=== PATIENT | male | born 1965 | race African-American/Black ===

== ENCOUNTER → 2020-04-10 10:33 | Outpatient (BNVA) | payer MEDICARE, MEDICAID, SELFPAY | PROVIDERS: PCP Internal Medicine; Referring Provider Internal Medicine; Visit Provider Family Medicine Adult Medicine | DX: M96.1 Postlaminectomy syndrome, not elsewhere classified (principal); M24.9 Joint derangement, unspecified; Z79.891 Long term (current) use of opiate analgesic; Z98.1 Arthrodesis status | CPT/HCPCS: 99214 ==

== ENCOUNTER → 2020-05-22 14:10 | Outpatient (BNVA) | payer MEDICARE, MEDICAID, SELFPAY | PROVIDERS: PCP Internal Medicine; Visit Provider Family Medicine Adult Medicine | DX: M24.9 Joint derangement, unspecified (principal); Z98.1 Arthrodesis status | CPT/HCPCS: 99212 ==

== ENCOUNTER → 2020-07-15 14:12 | Outpatient (BNVA) | payer MEDICARE, MEDICAID, SELFPAY | PROVIDERS: Visit Provider Nurse Practitioner Family | DX: M96.1 Postlaminectomy syndrome, not elsewhere classified (principal); M24.9 Joint derangement, unspecified; Z79.899 Other long term (current) drug therapy | CPT/HCPCS: 99212 ==

== ENCOUNTER → 2020-08-12 13:23 | Outpatient (BNVA) | payer MEDICARE, MEDICAID, SELFPAY | PROVIDERS: Visit Provider Family Medicine Adult Medicine | DX: M96.1 Postlaminectomy syndrome, not elsewhere classified (principal); M24.9 Joint derangement, unspecified | CPT/HCPCS: 99212 ==

== ENCOUNTER → 2020-09-29 14:46 | Outpatient (BNVA) | payer MEDICARE, MEDICAID, SELFPAY | PROVIDERS: Visit Provider Anesthesiology | DX: M96.1 Postlaminectomy syndrome, not elsewhere classified (principal); M24.9 Joint derangement, unspecified | CPT/HCPCS: 99212 ==

== ENCOUNTER → 2020-10-28 13:19 | Outpatient (BNVA) | payer MEDICARE, MEDICAID, SELFPAY | PROVIDERS: Visit Provider Family Medicine Adult Medicine | DX: M96.1 Postlaminectomy syndrome, not elsewhere classified (principal); M24.9 Joint derangement, unspecified | CPT/HCPCS: Q3014 ==

== ENCOUNTER 2020-11-04 06:55 | Outpatient (REF) | payer MEDICARE, MEDICAID, SELFPAY | END 2020-11-04 06:56 | disposition home or self-care (01) | LOC: HO.RADIR 06:55 | PROVIDERS: Visit Provider Anesthesiology | DX: M24.9 Joint derangement, unspecified (principal); M96.1 Postlaminectomy syndrome, not elsewhere classified; Z79.899 Other long term (current) drug therapy; Z98.1 Arthrodesis status | CPT/HCPCS: 64415 ==

== ENCOUNTER → 2020-11-10 12:57 | Outpatient (BNVA) | payer MEDICARE, MEDICAID, SELFPAY | PROVIDERS: Visit Provider Anesthesiology | DX: M96.1 Postlaminectomy syndrome, not elsewhere classified (principal); M24.9 Joint derangement, unspecified | CPT/HCPCS: Q3014 ==

== ENCOUNTER 2020-11-25 10:17 | Outpatient (REF) | payer MEDICARE, MEDICAID, SELFPAY ==
[2020-11-25 12:01] LABS: MANUAL DIFF FLAG NO
[2020-11-25 12:13] LABS: Basophils Percent Auto 0.3 % (0-2); Eosinophils Absolute Auto 0.1 X10*3/uL (0.0-0.4); Eosinophils Percent Auto 3.1 % (0-4); Hematocrit 35.5 % (42-52); Hemoglobin 11.4 g/dl (14.0-18.0); Imm Gran Abs Auto 0.01 X10*3/uL (0.00-0.03); Imm Gran Pct Auto 0.3 % (0.0-0.4); Immature Retic Fraction 8.1 % (2.3-13.4); Lymphocytes Absolute Auto 1.1 X10*3/uL (1.2-4.9); Lymphocytes Percent Auto 28.8 % (20-40); Mean Corpuscular HGB Conc 32.1 g/dl (31.0-36.0); Mean Corpuscular Hemoglobin 29.8 pg (27.0-33.0); Mean Corpuscular Volume 92.7 fL (80-98); Mean Platelet Volume 10.6 fL (9.4-12.4); Monocytes Absolute Auto 0.4 X10*3/uL (0.1-1.2); Monocytes Percent Auto 11.2 % (2-11); Neutrophils Absolute Auto 2.2 X10*3/uL (2.0-8.3); Neutrophils Percent Auto 56.3 % (45-73); Platelet Count 201 X10*3/uL (160-400); Red Blood Count 3.83 X10*6/uL (4.60-5.80); Red Cell Distribution Width 12.5 % (11.0-16.0); Retic HGB Equivalent 35.1 pg (30.0-35.0); Reticulocyte Percent 1.3 % (0.5-1.8); Reticulocytes Absolute 0.049 X10*6/uL (0.026-0.095); White Blood Count 3.9 X10*3/uL (4.8-10.8)
[2020-11-25 12:37] LABS: Ferritin 246 ng/mL (20-250); Free T4 (Free Thyroxine) 0.96 ng/dL (0.71-1.85); Prostate Specific Antigen Scr 0.62 ng/mL (<0.05-4.0); Thyroid Stimulating Hormone 0.31 uIU/mL (0.32-4.0)
[2020-11-25 12:58] LABS: Folate 8.6 ng/mL (> or = 4.0); Vitamin B12 286 pg/mL (200-900)
[2020-11-25 13:06] LABS: Alanine Aminotransferase 14 U/L (0-40); Albumin Level 4.7 g/dL (3.5-5.0); Alkaline Phosphatase 86 U/L (39-117); Anion Gap 14 (12-20); Aspartate Amino Transferase 24 U/L (5-37); Bilirubin Total 0.9 mg/dL (0.0-1.0); Blood Urea Nitrogen 16 mg/dL (9-16); Calcium 9.6 mg/dL (8.4-10.2); Carbon Dioxide 26 mmol/L (22-29); Chloride 104 mmol/L (96-108); Cholesterol 142 mg/dL; Estimated Glomerular Filt Rate > 60; Glucose Random 98 mg/dL (60-115); HDL Cholesterol 49 mg/dL; Iron 92 mcg/dL (45-160); LDL Cholesterol Calculated 82 mg/dl; Percent Iron Saturation 31 % (15-50); Potassium 3.3 mmol/L (3.3-5.1); Sodium 141 mmol/L (135-145); Total Iron Binding Capacity 297 mcg/dL (228-428); Total Protein 7.3 g/dL (6.5-8.0); Triglycerides 58 mg/dL; Unsaturated Iron Binding 205 ug/dL
== END 2020-11-25 10:18 | disposition home or self-care (01) ==
LOC: HO.LAB 10:17
PROVIDERS: PCP Internal Medicine; Visit Provider Internal Medicine
DX: M96.1 Postlaminectomy syndrome, not elsewhere classified (principal); M24.9 Joint derangement, unspecified; I10 Essential (primary) hypertension; E78.00 Pure hypercholesterolemia, unspecified; Z79.891 Long term (current) use of opiate analgesic; Z12.5 Encounter for screening for malignant neoplasm of prostate
CPT/HCPCS: 36415; 80053; 80061; 82607; 82728; 82746; 83540; 84153; 84439; 84443; 85025; 85045; 99212

== ENCOUNTER → 2020-12-09 15:58 | Outpatient (BNVA) | payer MEDICARE, MEDICAID, SELFPAY | PROVIDERS: PCP Internal Medicine; Visit Provider Family Medicine Adult Medicine | DX: M96.1 Postlaminectomy syndrome, not elsewhere classified (principal); M24.9 Joint derangement, unspecified | CPT/HCPCS: Q3014 ==

== ENCOUNTER 2020-12-29 09:30 | Outpatient (REF) | payer MEDICARE, MEDICAID, SELFPAY ==
[2020-12-29 11:09] LABS: MANUAL DIFF FLAG NO
[2020-12-29 11:16] LABS: Basophils Percent Auto 0.2 % (0-2); Eosinophils Absolute Auto 0.2 X10*3/uL (0.0-0.4); Eosinophils Percent Auto 3.6 % (0-4); Hematocrit 36.9 % (42-52); Immature Retic Fraction 2.8 % (2.3-13.4); Lymphocytes Absolute Auto 1.2 X10*3/uL (1.2-4.9); Lymphocytes Percent Auto 29.7 % (20-40); Mean Corpuscular HGB Conc 32.5 g/dl (31.0-36.0); Mean Corpuscular Hemoglobin 30.3 pg (27.0-33.0); Mean Corpuscular Volume 93.2 fL (80-98); Mean Platelet Volume 11.2 fL (9.4-12.4); Monocytes Absolute Auto 0.5 X10*3/uL (0.1-1.2); Monocytes Percent Auto 12.7 % (2-11); Neutrophils Absolute Auto 2.3 X10*3/uL (2.0-8.3); Neutrophils Percent Auto 53.8 % (45-73); Platelet Count 173 X10*3/uL (160-400); Red Blood Count 3.96 X10*6/uL (4.60-5.80); Red Cell Distribution Width 12.2 % (11.0-16.0); Retic HGB Equivalent 34.1 pg (30.0-35.0); Reticulocyte Percent 1.3 % (0.5-1.8); Reticulocytes Absolute 0.052 X10*6/uL (0.026-0.095); White Blood Count 4.2 X10*3/uL (4.8-10.8)
[2020-12-29 11:45] LABS: Iron 77 mcg/dL (45-160); Percent Iron Saturation 25 % (15-50); Total Iron Binding Capacity 306 mcg/dL (228-428); Unsaturated Iron Binding 229 ug/dL
[2020-12-29 11:54] LABS: Ferritin 262 ng/mL (20-250); Free T4 (Free Thyroxine) 1.04 ng/dL (0.71-1.85); Thyroid Stimulating Hormone 0.33 uIU/mL (0.32-4.0)
[2020-12-29 12:10] LABS: Folate 9.3 ng/mL (> or = 4.0); Vitamin B12 289 pg/mL (200-900)
== END 2020-12-29 09:31 | disposition home or self-care (01) ==
LOC: HO.HMGCLDS 09:30
PROVIDERS: PCP Internal Medicine; Visit Provider Internal Medicine
DX: R79.89 Other specified abnormal findings of blood chemistry (principal)
CPT/HCPCS: 36415; 82607; 82728; 82746; 83540; 84439; 84443; 85025; 85045

== ENCOUNTER 2021-01-20 06:14 | Outpatient (REF) | payer MEDICARE, MEDICAID, SELFPAY ==
--- NOTE | ~2021-01-20 | FL_ITS ---
EXAMINATION: XR FLUOROSCOPY WITH IMAGES CLINICAL INFORMATION: Chronic left shoulder pain. COMPARISON: 06/23/2018 and 05/30/2018. TECHNIQUE: Fluoroscopy performed by Pastora Champagne NP. Fluoroscopy time: 0.3 minutes DAP: 1.81 Gycm2 Images: 1 FINDINGS: Single image demonstrates some contrast and needle in place about the left shoulder joint. FL/FL guidance in treatment room IMPRESSION: Intraprocedural C-arm view of the left shoulder.
== END 2021-01-20 06:15 | disposition home or self-care (01) ==
LOC: HO.RADIR 06:14
PROVIDERS: Visit Provider Anesthesiology
DX: M96.1 Postlaminectomy syndrome, not elsewhere classified (principal); M24.9 Joint derangement, unspecified
CPT/HCPCS: 20610; J3300; Q9967

== ENCOUNTER → 2021-05-25 15:24 | Outpatient (BNVA) | payer MEDICARE, MEDICAID, SELFPAY | PROVIDERS: PCP Internal Medicine; Visit Provider Anesthesiology | DX: M96.1 Postlaminectomy syndrome, not elsewhere classified (principal); M24.9 Joint derangement, unspecified; F12.90 Cannabis use, unspecified, uncomplicated | CPT/HCPCS: 99212 ==

== ENCOUNTER → 2021-06-03 16:14 | Outpatient (BNVA) | payer MEDICARE, MEDICAID, SELFPAY | PROVIDERS: PCP Internal Medicine; Visit Provider Anesthesiology | DX: M96.1 Postlaminectomy syndrome, not elsewhere classified (principal); M24.9 Joint derangement, unspecified | CPT/HCPCS: Q3014 ==

== ENCOUNTER 2021-07-30 12:19 | Outpatient (REF) | payer MEDICARE, MEDICAID, SELFPAY ==
[2021-07-30 13:48] LABS: MANUAL DIFF FLAG NO
[2021-07-30 13:52] LABS: Basophils Percent Auto 0.4 % (0-2); Eosinophils Absolute Auto 0.1 X10*3/uL (0.0-0.4); Eosinophils Percent Auto 1.9 % (0-4); Hematocrit 40.5 % (42.0-52.0); Hemoglobin 13.4 g/dl (14.0-18.0); Imm Gran Abs Auto 0.01 X10*3/uL (0.00-0.03); Imm Gran Pct Auto 0.2 % (0.0-0.4); Lymphocytes Absolute Auto 1.8 X10*3/uL (1.2-4.9); Lymphocytes Percent Auto 33.3 % (20-40); Mean Corpuscular HGB Conc 33.1 g/dl (31.0-36.0); Mean Corpuscular Hemoglobin 30.2 pg (27.0-33.0); Mean Corpuscular Volume 91.4 fL (80.0-98.0); Mean Platelet Volume 10.5 fL (9.4-12.4); Monocytes Absolute Auto 0.7 X10*3/uL (0.1-1.2); Monocytes Percent Auto 12.5 % (2-11); Neutrophils Absolute Auto 2.8 x10*3/uL (2.0-8.3); Neutrophils Percent Auto 51.7 % (45-73); Platelet Count 243 X10*3/uL (160-400); Red Blood Count 4.43 X10*6/uL (4.60-5.80); Red Cell Distribution Width 11.5 % (11.0-16.0); Retic HGB Equivalent 34.3 pg (30.0-35.0); Reticulocyte Percent 0.9 % (0.5-1.8); White Blood Count 5.4 X10*3/uL (4.8-10.8)
[2021-07-30 14:23] LABS: Alanine Aminotransferase 15 U/L (0-40); Albumin Level 4.8 g/dL (3.5-5.0); Alkaline Phosphatase 81 U/L (39-117); Anion Gap 12 (12-20); Aspartate Amino Transferase 31 U/L (5-37); Bilirubin Total 1.5 mg/dL (0.0-1.0); Blood Urea Nitrogen 24 mg/dL (9-16); Calcium 10.2 mg/dL (8.4-10.2); Carbon Dioxide 33 mmol/L (22-29); Chloride 99 mmol/L (96-108); Estimated Glomerular Filt Rate 45; Glucose Random 98 mg/dL (60-115); Iron 105 mcg/dL (45-160); Percent Iron Saturation 30 % (15-50); Potassium 4.2 mmol/L (3.3-5.1); Sodium 140 mmol/L (135-145); Total Iron Binding Capacity 347 mcg/dL (228-428); Total Protein 7.9 g/dL (6.5-8.0); Unsaturated Iron Binding 242 ug/dL
[2021-07-30 14:44] LABS: Ferritin 283 ng/mL (20-250)
[2021-07-30 14:55] LABS: Folate 13.1 ng/mL (> or = 4.0); Vitamin B12 483 pg/mL (200-900)
== END 2021-07-30 12:20 | disposition home or self-care (01) ==
LOC: HO.HMGCLDS 12:19
PROVIDERS: Visit Provider Internal Medicine
DX: E87.6 Hypokalemia (principal)
CPT/HCPCS: 36415; 80053; 82607; 82728; 82746; 83540; 85025; 85045

== ENCOUNTER 2021-08-13 10:57 | Outpatient (REF) | payer MEDICARE, MEDICAID, SELFPAY ==
[2021-08-13 14:01] LABS: Anion Gap 13 (12-20); Blood Urea Nitrogen 24 mg/dL (9-16); Carbon Dioxide 29 mmol/L (22-29); Chloride 102 mmol/L (96-108); Estimated Glomerular Filt Rate > 60; Glucose Random 92 mg/dL (60-115); Potassium 4.7 mmol/L (3.3-5.1); Sodium 139 mmol/L (135-145)
== END 2021-08-13 10:58 | disposition home or self-care (01) ==
LOC: HO.HMGCLDS 10:57
PROVIDERS: Visit Provider Internal Medicine
DX: N28.9 Disorder of kidney and ureter, unspecified (principal)
CPT/HCPCS: 36415; 80048

== ENCOUNTER 2022-02-23 06:31 | Emergency (ER) | payer MEDICARE, MEDICAID, SELFPAY ==
[2022-02-23 06:47] VITALS: BP 137/68; PULSE 51; RESP 16; TEMP 36.8; O2SAT 99; BMI 28.5
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
[2022-02-23] MEDS: Ketorolac Tromethamine 60 MG/2 ML VIAL IM (08:06)
== END 2022-02-23 08:23 | disposition home or self-care (01) ==
PROVIDERS: Emergency Provider Emergency Medicine; PCP Internal Medicine
DX: M25.512 Pain in left shoulder (principal); Z79.899 Other long term (current) drug therapy
CPT/HCPCS: 96372; 99283; 99284; J1885

== ENCOUNTER 2022-07-30 10:14 | Outpatient (REF) | payer MEDICARE, MEDICAID, SELFPAY ==
[2022-07-30 11:33] LABS: MANUAL DIFF FLAG NO
[2022-07-30 11:51] LABS: Basophils Percent Auto 0.4 % (0-2); Eosinophils Absolute Auto 0.2 X10*3/uL (0.0-0.4); Eosinophils Percent Auto 4.5 % (0-4); Hematocrit 37.2 % (42.0-52.0); Imm Gran Abs Auto 0.01 X10*3/uL (0.00-0.03); Imm Gran Pct Auto 0.2 % (0.0-0.4); Lymphocytes Absolute Auto 1.5 X10*3/uL (1.2-4.9); Lymphocytes Percent Auto 33.3 % (20-40); Mean Corpuscular HGB Conc 32.3 g/dl (31.0-36.0); Mean Corpuscular Hemoglobin 29.8 pg (27.0-33.0); Mean Corpuscular Volume 92.3 fL (80.0-98.0); Mean Platelet Volume 10.6 fL (9.4-12.4); Monocytes Absolute Auto 0.5 X10*3/uL (0.1-1.2); Monocytes Percent Auto 11.5 % (2-11); Neutrophils Absolute Auto 2.2 x10*3/uL (2.0-8.3); Neutrophils Percent Auto 50.1 % (45-73); Platelet Count 186 X10*3/uL (160-400); Red Blood Count 4.03 X10*6/uL (4.60-5.80); Red Cell Distribution Width 12.3 % (11.0-16.0); White Blood Count 4.5 X10*3/uL (4.8-10.8)
[2022-07-30 12:33] LABS: Erythrocyte Sedimentation Rate 12 MM/HR (0-15)
[2022-07-30 12:34] LABS: Alanine Aminotransferase 23 U/L (0-40); Albumin Level 4.4 g/dL (3.5-5.0); Alkaline Phosphatase 111 U/L (39-117); Anion Gap 12 (12-20); Aspartate Amino Transferase 24 U/L (5-37); Bilirubin Total 0.3 mg/dL (0.0-1.0); Blood Urea Nitrogen 22 mg/dL (9-16); Calcium 9.1 mg/dL (8.4-10.2); Carbon Dioxide 30 mmol/L (22-29); Chloride 104 mmol/L (96-108); Cholesterol 167 mg/dL; Estimated Glomerular Filt Rate > 60; Glucose Random 103 mg/dL (60-115); HDL Cholesterol 38 mg/dL; LDL Cholesterol Calculated 108 mg/dl; Potassium 4.1 mmol/L (3.3-5.1); Sodium 142 mmol/L (135-145); Total Protein 6.8 g/dL (6.5-8.0); Triglycerides 109 mg/dL
[2022-07-30 12:36] LABS: Folate 7.7 ng/mL (> or = 4.0); Free T4 (Free Thyroxine) 0.97 ng/dL (0.71-1.85); Prostate Specific Antigen Scr 0.54 ng/mL (<0.05-4.0); Thyroid Stimulating Hormone 0.74 uIU/mL (0.32-4.0); Vitamin B12 314 pg/mL (200-900)
== END 2022-07-30 10:15 | disposition home or self-care (01) ==
LOC: HO.HMGCLDS 10:14
PROVIDERS: PCP Internal Medicine; Visit Provider Internal Medicine
DX: Z12.5 Encounter for screening for malignant neoplasm of prostate (principal); I10 Essential (primary) hypertension; E78.00 Pure hypercholesterolemia, unspecified
CPT/HCPCS: 36415; 80053; 80061; 82607; 82746; 84153; 84439; 84443; 85025; 85652

== ENCOUNTER 2023-02-01 00:58 | Emergency (ER) | payer MEDICARE, MEDICAID, SELFPAY ==
--- NOTE | ~2023-02-01 | XR_ITS ---
EXAMINATION: XR LUMBOSACRAL SPINE CLINICAL INFORMATION: Status post fall COMPARISON: 04/13/2018 TECHNIQUE: Three views of the lumbosacral spine. FINDINGS: Disc spacer hardware at L5-S1. Unchanged alignment from prior. No acute fracture or subluxation. Vertebral body heights are aligned. Disc space narrowing at L3-L4 with endplate osteophytes and sclerosis. The sacroiliac joints are symmetric. Intact sacrum. Normal bowel gas pattern. XR/XR lumbar spine 2-3V IMPRESSION: No acute fracture or malalignment. Degenerative changes at L3-L4.
--- NOTE | ~2023-02-01 | XR_ITS ---
EXAMINATION: XR CHEST CLINICAL INFORMATION: Fall COMPARISON: None available. TECHNIQUE: 2 views of the chest were obtained. FINDINGS: The lungs are well expanded. There is no focal consolidation, edema, or effusion. No pneumothorax. The cardiomediastinal silhouette is within normal limits. No acute osseous abnormality. Reverse total left shoulder arthroplasty. Likely prior resection of the lateral aspect of the left clavicle. Chronic appearing deformity of the right rib cage. XR/XR chest 2V IMPRESSION: No acute pulmonary disease. No displaced fractures are seen.
[2023-02-01 01:20] VITALS: BP 157/68; PULSE 49; RESP 16; TEMP 36.8; O2SAT 100; BMI 29.2
[2023-02-01 01:44] VITALS: BP 155/67; PULSE 43; RESP 16; TEMP 36.9; O2SAT 99
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
[2023-02-01] MEDS: Ketorolac Tromethamine 60 MG/2 ML VIAL IM (02:38)
== END 2023-02-01 03:13 | disposition home or self-care (01) ==
PROVIDERS: Emergency Provider Internal Medicine; PCP Internal Medicine
DX: S30.0XXA Contusion of lower back and pelvis, initial encounter (principal); W10.8XXA Fall (on) (from) other stairs and steps, initial encounter; Y93.9 Activity, unspecified; Y92.9 Unspecified place or not applicable; Y99.9 Unspecified external cause status
CPT/HCPCS: 71046; 72100; 96372; 99283; 99284; J1885

== ENCOUNTER 2023-02-14 07:52 | Outpatient (AMB) | payer MEDICARE, MEDICAID, SELFPAY ==
[2023-02-14 07:56] VITALS: BP 148/82; PULSE 59; O2SAT 98; BMI 28.2
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
== END 2023-02-14 08:17 | disposition home or self-care (01) ==
PROVIDERS: PCP Internal Medicine; Visit Provider Nurse Practitioner Family
DX: I10 Essential (primary) hypertension (principal); W10.8XXA Fall (on) (from) other stairs and steps, initial encounter; M96.1 Postlaminectomy syndrome, not elsewhere classified; M54.50 Low back pain, unspecified
CPT/HCPCS: 99214

== ENCOUNTER 2023-04-18 11:27 | Outpatient (AMB) | payer MEDICARE, MEDICAID, SELFPAY ==
[2023-04-18 11:28] VITALS: BP 130/72; PULSE 44; O2SAT 100; BMI 29.2
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
== END 2023-04-18 12:54 | disposition home or self-care (01) ==
PROVIDERS: Visit Provider Internal Medicine
DX: Z00.00 Encounter for general adult medical examination without abnormal findings (principal); M96.1 Postlaminectomy syndrome, not elsewhere classified; M24.9 Joint derangement, unspecified; W19.XXXA Unspecified fall, initial encounter; I10 Essential (primary) hypertension; Z23 Encounter for immunization
CPT/HCPCS: 90471; 90686; 99396

== ENCOUNTER 2023-07-27 15:28 | Outpatient (AMB) | payer MEDICARE, MEDICAID, SELFPAY ==
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
== END 2023-07-27 16:21 | disposition home or self-care (01) ==
LOC: HO.HMGH 15:28
PROVIDERS: PCP Internal Medicine; Visit Provider Internal Medicine
DX: M24.812 Other specific joint derangements of left shoulder, not elsewhere classified (principal); I10 Essential (primary) hypertension
CPT/HCPCS: G2252

== ENCOUNTER 2023-11-16 09:43 | Outpatient (AMB) | payer MEDICARE, MEDICAID, SELFPAY ==
[2023-11-16 09:51] VITALS: BP 140/88; PULSE 40; O2SAT 97; BMI 30.5
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
== END 2023-11-16 10:48 | disposition home or self-care (01) ==
PROVIDERS: PCP Internal Medicine; Visit Provider Internal Medicine
DX: I10 Essential (primary) hypertension (principal); M24.9 Joint derangement, unspecified; F41.1 Generalized anxiety disorder
CPT/HCPCS: 99214

== ENCOUNTER 2023-12-12 09:06 | Outpatient (REF) | payer MEDICARE, MEDICAID, SELFPAY ==
[2023-12-12 12:11] LABS: MANUAL DIFF FLAG NO
[2023-12-12 12:16] LABS: Basophils Percent Auto 0.3 % (0-2); Eosinophils Absolute Auto 0.1 X10*3/uL (0.0-0.4); Eosinophils Percent Auto 0.9 % (0-4); Hematocrit 39.1 % (42.0-52.0); Hemoglobin 12.7 g/dl (14.0-18.0); Imm Gran Abs Auto 0.06 X10*3/uL (0.00-0.03); Imm Gran Pct Auto 0.7 % (0.0-0.4); Lymphocytes Absolute Auto 2.6 X10*3/uL (1.2-4.9); Lymphocytes Percent Auto 29.8 % (20-40); Mean Corpuscular HGB Conc 32.5 g/dl (31.0-36.0); Mean Corpuscular Hemoglobin 31.1 pg (27.0-33.0); Mean Corpuscular Volume 95.8 fL (80.0-98.0); Mean Platelet Volume 10.6 fL (9.4-12.4); Monocytes Absolute Auto 1.1 X10*3/uL (0.1-1.2); Monocytes Percent Auto 12.3 % (2-11); Neutrophils Absolute Auto 4.9 x10*3/uL (2.0-8.3); Platelet Count 192 X10*3/uL (160-400); Red Blood Count 4.08 X10*6/uL (4.60-5.80); Red Cell Distribution Width 12.3 % (11.0-16.0); White Blood Count 8.7 X10*3/uL (4.8-10.8)
[2023-12-12 12:33] LABS: Alanine Aminotransferase 25 U/L (0-40); Albumin Level 4.3 g/dL (3.5-5.0); Alkaline Phosphatase 112 U/L (39-117); Anion Gap 11 (12-20); Aspartate Amino Transferase 23 U/L (5-37); Bilirubin Total 0.2 mg/dL (0.0-1.0); Blood Urea Nitrogen 17 mg/dL (9-16); Calcium 9.5 mg/dL (8.4-10.2); Carbon Dioxide 31 mmol/L (22-29); Chloride 105 mmol/L (96-108); Cholesterol 152 mg/dL (<200); Estimated Glomerular Filt Rate > 60; Glucose Random 98 mg/dL (60-115); HDL Cholesterol 50 mg/dL (>40); LDL Cholesterol Calculated 83 mg/dL (<100); Potassium 3.9 mmol/L (3.3-5.1); Sodium 143 mmol/L (135-145); Total Protein 7.2 g/dL (6.5-8.0); Triglycerides 97 mg/dL (<150)
[2023-12-12 12:52] LABS: Free T4 (Free Thyroxine) 0.59 ng/dL (0.71-1.85); Thyroid Stimulating Hormone 0.77 uIU/mL (0.32-4.0)
[2023-12-12 13:03] LABS: Folate 7.2 ng/mL (> or = 4.0); Prostate Specific Antigen Scr 0.53 ng/mL (<0.05-4.0); Vitamin B12 281 pg/mL (200-900)
== END 2023-12-12 09:07 | disposition home or self-care (01) ==
LOC: HO.HMGCLDS 09:06
PROVIDERS: PCP Internal Medicine; Visit Provider Internal Medicine
DX: Z12.5 Encounter for screening for malignant neoplasm of prostate (principal); M96.1 Postlaminectomy syndrome, not elsewhere classified; M46.1 Sacroiliitis, not elsewhere classified; M53.3 Sacrococcygeal disorders, not elsewhere classified; G89.4 Chronic pain syndrome; E78.00 Pure hypercholesterolemia, unspecified; I10 Essential (primary) hypertension
CPT/HCPCS: 36415; 80053; 80061; 82607; 82746; 84153; 84439; 84443; 85025; 99212

== ENCOUNTER 2023-12-12 14:29 | Outpatient (AMB) | payer MEDICARE, MEDICAID, SELFPAY ==
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
[2023-12-12 14:50] VITALS: BP 150/72; PULSE 50; RESP 18; O2SAT 96; BMI 31.2
== END 2023-12-12 15:27 | disposition home or self-care (01) ==
PROVIDERS: PCP Internal Medicine; Visit Provider Anesthesiology
DX: M96.1 Postlaminectomy syndrome, not elsewhere classified (principal); M46.1 Sacroiliitis, not elsewhere classified; M53.3 Sacrococcygeal disorders, not elsewhere classified; G89.4 Chronic pain syndrome
CPT/HCPCS: 99214

== ENCOUNTER 2024-01-17 07:14 | Outpatient (REF) | payer MEDICARE, MEDICAID, SELFPAY ==
--- NOTE | ~2024-01-17 | FL_ITS ---
EXAMINATION: XR FLUOROSCOPY WITH IMAGES CLINICAL INFORMATION: Sacrococcygeal disorders, not otherwise specified. Right SI joint injection. COMPARISON: CR lumbosacral spine 02/01/2023 TECHNIQUE: Fluoroscopy provided to: Dr. Romero Fluoroscopy time: 4 seconds DAP: 0.0778 mGycm2 Images: 2 FINDINGS: 2 PA spot images right SI joint show needle placement within the synovial joint with subsequent contrast injection. Titanium fusion cages noted L5-S1. FL/FL guidance in treatment room IMPRESSION: Fluoroscopic guidance. Please refer to the full operative report for details. Electronically signed by: Jaspreet Thibodeaux MD 03/15/2024 09:04 AM EDT
== END 2024-01-17 07:15 | disposition home or self-care (01) ==
LOC: CF 07:14
PROVIDERS: Visit Provider Anesthesiology
DX: M53.3 Sacrococcygeal disorders, not elsewhere classified (principal); M96.1 Postlaminectomy syndrome, not elsewhere classified; M46.1 Sacroiliitis, not elsewhere classified; G89.4 Chronic pain syndrome
CPT/HCPCS: 27096; J2795; J3301; Q9967

== ENCOUNTER 2024-01-17 12:25 | Outpatient (AMB) | payer MEDICARE, MEDICAID, SELFPAY ==
[2024-01-17 12:53] VITALS: BP 128/75; PULSE 47; RESP 17; O2SAT 99
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
[2024-01-17 13:15] VITALS: BP 138/78; PULSE 40; RESP 17; O2SAT 98
== END 2024-01-17 13:18 | disposition home or self-care (01) ==
LOC: HO.PMCPRC 12:25
PROVIDERS: PCP Internal Medicine; Visit Provider Anesthesiology
DX: M46.1 Sacroiliitis, not elsewhere classified (principal); M53.3 Sacrococcygeal disorders, not elsewhere classified
CPT/HCPCS: 27096

== ENCOUNTER 2024-03-01 15:27 | Outpatient (AMB) | payer MEDICARE, MEDICAID, SELFPAY ==
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
[2024-03-01 15:32] VITALS: BP 148/80; PULSE 55; O2SAT 98; BMI 31.2
== END 2024-03-01 15:49 | disposition home or self-care (01) ==
PROVIDERS: PCP Internal Medicine; Visit Provider Nurse Practitioner Family
DX: M96.1 Postlaminectomy syndrome, not elsewhere classified (principal); M46.1 Sacroiliitis, not elsewhere classified; M53.3 Sacrococcygeal disorders, not elsewhere classified; G89.4 Chronic pain syndrome
CPT/HCPCS: 99214; G2211

== ENCOUNTER → 2024-03-01 15:27 | Outpatient (BNVA) | payer MEDICARE, MEDICAID, SELFPAY | PROVIDERS: PCP Internal Medicine; Visit Provider Nurse Practitioner Family | DX: M46.1 Sacroiliitis, not elsewhere classified (principal); M53.3 Sacrococcygeal disorders, not elsewhere classified; M96.1 Postlaminectomy syndrome, not elsewhere classified; G89.4 Chronic pain syndrome | CPT/HCPCS: 99212 ==

== ENCOUNTER 2024-03-18 18:23 | Emergency (ER) | payer MEDICARE, MEDICAID, SELFPAY ==
[2024-03-18] VITALS (7 sets, daily range): BP systolic 128–168; BP diastolic 58–80; PULSE 49–56; RESP 15–24; TEMP 36.8–36.9; O2SAT 98–100; BMI 30.6
--- NOTE | ~2024-03-18 | CT_ITS ---
EXAMINATION: CTA CHEST, ABDOMEN AND PELVIS WITH CONTRAST CLINICAL INFORMATION: Severe chest and back pain, rule out dissection TECHNIQUE: Multiple axial images were obtained through the chest, abdomen and pelvis using a [address] scan before and after administration of IV contrast. 100 mL of Omnipaque 350 was administered intravenously. Images were evaluated on independent dedicated 3-D workstation and 3-D images were reconstructed with concurrent radiologist supervision and subsequently interpreted. COMPARISON: None DLP: 667 mGy-cm. FINDINGS: VASCULAR: 1. Ascending thoracic aorta: Unremarkable 2. Thoracic aortic arch: Normal caliber three-vessel aortic arch, the visualized great vessels are widely patent. 3. Descending thoracic aorta: Unremarkable 4. Mesenteric arteries: Unremarkable 5. Renal arteries: Unremarkable 6. Abdominal aorta: No aneurysm or dissection. 7. Right iliofemoral system: Unremarkable 8. Left iliofemoral system: Unremarkable NONVASCULAR: CHEST: LUNGS: The lungs are clear with no evidence of inflammation or nodules. MEDIASTINUM: The mediastinum is normal. Central vascular structures are unremarkable. No hilar or mediastinal lymphadenopathy. PERICARDIUM/PLEURA: There is no significant effusion. No pleural mass or thickening. CHEST WALL/AXILLA: Unremarkable. ABDOMEN/PELVIS: LIVER, GALLBLADDER, BILIARY TREE: The liver is normal in size, shape, and attenuation. No focal hepatic lesion or biliary ductal dilatation is present. The gallbladder is unremarkable with no evidence of radiopaque gallstones, gallbladder wall thickening, or pericholecystic inflammatory changes. PANCREAS: Unremarkable. SPLEEN: Unremarkable. ADRENAL GLANDS: Unremarkable. KIDNEYS AND URETERS: The kidneys are normal in size, shape, and attenuation. No hydronephrosis or hydroureter or calculi seen. No perinephric stranding. BLADDER: Unremarkable. GASTROINTESTINAL TRACT: The small and large bowel are unremarkable. The appendix is unremarkable. ABDOMINAL WALL: No hernia is demonstrated. LYMPH NODES: Normal. PELVIC VISCERA: Unremarkable. OSSEOUS STRUCTURES: Intervertebral disc spacer at L5-S1. Degenerative disc disease at L3-L4. CT/CT angio abdomen pelvis IMPRESSION: 1. Negative CTA of the chest, abdomen and pelvis. No evidence of aortic dissection. 2. Degenerative disc disease at L3-L4. Intervertebral disc spacer at L5-S1. Electronically signed by: Ang Cardoso MD 03/18/2024 07:33 PM EDT
--- NOTE | 2024-03-18 18:48 | ECG_ITS ---
Test Reason : CHETS PAIN Blood Pressure : / mmHG Vent. Rate : 049 BPM Atrial Rate : 049 BPM P-R Int : 186 ms QRS Dur : 100 ms QT Int : 432 ms P-R-T Axes : 043 -35 -02 degrees QTc Int : 390 ms Sinus bradycardia Left axis deviation Minimal voltage criteria for LVH, may be normal variant ( R in aVL ) Nonspecific ST abnormality Abnormal ECG No previous ECGs available Referred By: Breann Stanley Electronically Signed By:MANNY ROBERTSON
--- NOTE | 2024-03-18 18:55 | MHC.EDTECH ---
PER TOLD THIS TECH to wait for EKG until pt come back from CT
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
[2024-03-18] MEDS: iohexoL 350 MG/ML 100 ML INFUS..BTL IV (19:12)
[2024-03-18] MEDS: HYDROmorphone HCl 2 MG/ML VIAL 1 MG IVPUSH (19:15)
[2024-03-18] MEDS: Lidocaine HCl Viscous 2 % 15 ML SOLUTION MUCOUS MEM (19:28)
[2024-03-18] MEDS: Magnesium Hydrox/Alum Hydrox 30 ML ORAL.SUSP PO (19:28)
[2024-03-18] MEDS: Famotidine/PF 20 MG/2 ML VIAL IVPUSH (19:28)
[2024-03-18 19:49] LABS: Basophils Percent Auto 0.4 % (0-2); Eosinophils Absolute Auto 0.1 X10*3/uL (0.0-0.4); Eosinophils Percent Auto 1.2 % (0-4); Hematocrit 34.6 % (42.0-52.0); Hemoglobin 11.9 g/dl (14.0-18.0); Imm Gran Abs Auto 0.03 X10*3/uL (0.00-0.03); Imm Gran Pct Auto 0.4 % (0.0-0.4); Lymphocytes Absolute Auto 1.3 X10*3/uL (1.2-4.9); Lymphocytes Percent Auto 19.4 % (20-40); MANUAL DIFF FLAG SCAN; Mean Corpuscular HGB Conc 34.4 g/dl (31.0-36.0); Monocytes Absolute Auto 0.7 X10*3/uL (0.1-1.2); Monocytes Percent Auto 10.2 % (2-11); Neutrophils Absolute Auto 4.6 x10*3/uL (2.0-8.3); Neutrophils Percent Auto 68.4 % (45-73); PLT CLUMP 1; Red Blood Count 3.72 X10*6/uL (4.60-5.80); Red Cell Distribution Width 12.2 % (11.0-16.0); SCAN SMEAR FLAG 1
[2024-03-18 19:59] LABS: B Type Natriuretic Peptide 18 pg/mL (<100)
[2024-03-18 20:02] LABS: Troponin-I High Sensitivity < 2.7 ng/L (<3.5-35.0)
[2024-03-18 20:06] LABS: Mean Platelet Volume 11.5 fL (9.4-12.4); Platelet Count 147 X10*3/uL (160-400); White Blood Count 6.8 X10*3/uL (4.8-10.8)
[2024-03-18 20:07] LABS: SLIDE REVIEW VERIFIED
[2024-03-18 20:08] LABS: Alanine Aminotransferase 18 U/L (0-40); Albumin Level 3.8 g/dL (3.5-5.0); Alkaline Phosphatase 65 U/L (39-117); Anion Gap 13 (12-20); Aspartate Amino Transferase 29 U/L (5-37); Bilirubin Direct 0.2 mg/dL (0.0-0.5); Bilirubin Total 0.6 mg/dL (0.0-1.0); Blood Urea Nitrogen 17 mg/dL (9-16); Calcium 8.8 mg/dL (8.4-10.2); Carbon Dioxide 25 mmol/L (22-29); Chloride 105 mmol/L (96-108); Creatinine Clr Calc Pharmacy 74.5; Estimated Glomerular Filt Rate 56; Glucose Random 99 mg/dL (60-115); Lipase 11 U/L (8-78); Potassium 3.6 mmol/L (3.3-5.1); Sodium 139 mmol/L (135-145); Total Protein 6.4 g/dL (6.5-8.0)
[2024-03-18 20:11] LABS: Appearance Urine Clear; Color Urine Yellow; Glucose Urine UA Negative (Negative); Leukocyte Esterase Urine Negative (Negative); Nitrite Urine Negative (Negative); Specific Gravity - Urine >= 1.030 (1.005-1.025); Urine Blood Negative (Negative); Urine Ketones Negative (Negative); Urine Protein Negative (Neg-Trace)
[2024-03-18 20:19] LABS: Influenza A PCR NEGATIVE (Negative); Influenza B PCR NEGATIVE (Negative); Resp Syncy Virus RNA Qual PCR NEGATIVE (Negative); SARS COV2 PCR INHOUSE NEGATIVE (Negative)
[2024-03-18 22:18] LABS: Troponin-I High Sensitivity 3.2 ng/L (<3.5-35.0)
== END 2024-03-18 22:46 | disposition home or self-care (01) ==
PROVIDERS: Emergency Provider Emergency Medicine; PCP Internal Medicine
DX: R07.89 Other chest pain (principal); G89.29 Other chronic pain; M54.6 Pain in thoracic spine; R10.2 Pelvic and perineal pain; Z79.899 Other long term (current) drug therapy; Z03.818 Encounter for observation for suspected exposure to other biological agents ruled out
CPT/HCPCS: 0241U; 36415; 71275; 74174; 80048; 80076; 81003; 83690; 83880; 84484; 85025; 93005; 96374; 96375; 99285; J1170; Q9967

== ENCOUNTER 2024-03-22 11:36 | Outpatient (AMB) | payer MEDICARE, MEDICAID, SELFPAY ==
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
[2024-03-22 11:43] VITALS: BP 156/74; PULSE 52; RESP 18; O2SAT 100; BMI 30.7
== END 2024-03-22 11:53 | disposition home or self-care (01) ==
PROVIDERS: PCP Internal Medicine; Visit Provider Anesthesiology
DX: M96.1 Postlaminectomy syndrome, not elsewhere classified (principal); M46.1 Sacroiliitis, not elsewhere classified; M53.3 Sacrococcygeal disorders, not elsewhere classified; G89.4 Chronic pain syndrome
CPT/HCPCS: 99213

== ENCOUNTER → 2024-03-22 11:36 | Outpatient (BNVA) | payer MEDICARE, MEDICAID, SELFPAY | PROVIDERS: PCP Internal Medicine; Visit Provider Anesthesiology | DX: M96.1 Postlaminectomy syndrome, not elsewhere classified (principal); M46.1 Sacroiliitis, not elsewhere classified; M53.3 Sacrococcygeal disorders, not elsewhere classified; G89.4 Chronic pain syndrome | CPT/HCPCS: 99212 ==

== ENCOUNTER 2024-03-29 08:33 | Outpatient (AMB) | payer MEDICARE, MEDICAID, SELFPAY ==
[2024-03-29 08:38] VITALS: BP 152/88; PULSE 63; O2SAT 98; BMI 31.2
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
== END 2024-03-29 09:12 | disposition home or self-care (01) ==
PROVIDERS: PCP Internal Medicine; Visit Provider Internal Medicine
DX: D64.9 Anemia, unspecified (principal); I10 Essential (primary) hypertension; M96.1 Postlaminectomy syndrome, not elsewhere classified; M24.9 Joint derangement, unspecified; F41.1 Generalized anxiety disorder; Z23 Encounter for immunization

== ENCOUNTER → 2024-03-29 08:33 | Outpatient (BNVA) | payer MEDICARE, MEDICAID, SELFPAY | PROVIDERS: PCP Internal Medicine; Visit Provider Internal Medicine | DX: Z23 Encounter for immunization (principal); D64.9 Anemia, unspecified; I10 Essential (primary) hypertension; M96.1 Postlaminectomy syndrome, not elsewhere classified; M24.9 Joint derangement, unspecified; F41.1 Generalized anxiety disorder | CPT/HCPCS: 90471; 90656; 96127; 99212 ==

== ENCOUNTER 2024-04-12 13:35 | Outpatient (AMB) | payer MEDICARE, MEDICAID, SELFPAY ==
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
[2024-04-12 13:45] VITALS: BP 140/93; PULSE 54; RESP 18; O2SAT 97; BMI 31.2
== END 2024-04-12 13:56 | disposition home or self-care (01) ==
PROVIDERS: PCP Internal Medicine; Visit Provider Anesthesiology
DX: M96.1 Postlaminectomy syndrome, not elsewhere classified (principal); M46.1 Sacroiliitis, not elsewhere classified; M53.3 Sacrococcygeal disorders, not elsewhere classified; G89.4 Chronic pain syndrome
CPT/HCPCS: 99213

== ENCOUNTER → 2024-04-12 13:35 | Outpatient (BNVA) | payer MEDICARE, MEDICAID, SELFPAY | PROVIDERS: PCP Internal Medicine; Visit Provider Anesthesiology | DX: M96.1 Postlaminectomy syndrome, not elsewhere classified (principal); M46.1 Sacroiliitis, not elsewhere classified; M53.3 Sacrococcygeal disorders, not elsewhere classified; G89.4 Chronic pain syndrome | CPT/HCPCS: 99212 ==

== ENCOUNTER 2024-05-23 11:08 | Outpatient (AMB) | payer MEDICARE, MEDICAID, SELFPAY ==
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
[2024-05-23 11:10] VITALS: BP 152/84; PULSE 84; O2SAT 98; BMI 30.6
[2024-05-23 11:49] VITALS: BP 130/72
== END 2024-05-23 11:56 | disposition home or self-care (01) ==
PROVIDERS: PCP Internal Medicine
DX: Z00.00 Encounter for general adult medical examination without abnormal findings (principal); G89.4 Chronic pain syndrome; E66.9 Obesity, unspecified; Z68.30 Body mass index [BMI] 30.0-30.9, adult; M53.3 Sacrococcygeal disorders, not elsewhere classified; N28.9 Disorder of kidney and ureter, unspecified; F41.1 Generalized anxiety disorder; I10 Essential (primary) hypertension; M24.9 Joint derangement, unspecified; Z98.1 Arthrodesis status

== ENCOUNTER → 2024-05-23 11:08 | Outpatient (BNVA) | payer MEDICARE, MEDICAID, SELFPAY | PROVIDERS: PCP Internal Medicine | DX: Z00.00 Encounter for general adult medical examination without abnormal findings (principal); G89.4 Chronic pain syndrome; M53.3 Sacrococcygeal disorders, not elsewhere classified; N28.9 Disorder of kidney and ureter, unspecified; E66.9 Obesity, unspecified; F41.1 Generalized anxiety disorder; I10 Essential (primary) hypertension; M24.9 Joint derangement, unspecified; Z98.1 Arthrodesis status | CPT/HCPCS: 96127; 99396 ==

== ENCOUNTER 2024-08-21 11:22 | Outpatient (AMB) | payer MEDICARE, MEDICAID, SELFPAY ==
[2024-08-21 11:41] VITALS: BP 130/80; PULSE 56; BMI 31.5
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
--- OUTSIDE RECORDS SUMMARY | 2024-08-21 14:19 | XMS_ITS | Clinical Summary ---
Author Organization [facility] ity Address [address] [place] [address] Care Team Providers Care Supervisor Order Takers Name Role Phone Vernon Peres MD Primary Care Provider [phone] Social History Tobacco Use Types Packs/Day Years Used Date Smoking Tobacco: Never Assessed Sex and Gender Information Value Date Recorded Sex Assigned at Not on file Legal Sex Male 4:38 PM EST Gender Identity Not on file Sexual Orientation Not on file Plan of Treatment Health Maintenance Due Date Last Done Comments DTaP,Tdap,and Td Vaccines (1 - Tdap) 1983 Pneumococcal Vaccine: 50+ Ye ars (1 of 1 - PCV) 2014 Zoster Vaccines (1 of 2) 2014 COVID-19 Vaccine ( - 2023-2 5 season) 2024 Influenza Vaccine (#1) 2024 RSV Immunization Patients 60 + Years Old (1 - 1-dose 75+ series) 2039 HIB Vaccines Aged Out No longer eligi ble based on patient's age to complete this topic HPV Vaccines Aged Out No longer eligi ble based on patient's age to complete this topic Hepatitis A Vaccines Aged Out No long er eligible based on patient's age to complete this topic Hepatitis B Vaccines Aged Out No long er eligible based on patient's age to complete this topic IPV Vaccines Aged Out No longer eligi ble based on patient's age to complete this topic MMR Vaccines Aged Out No longer eligi ble based on patient's age to complete this topic Meningococcal ACWY Vaccine Aged Out N o longer eligible based on patient's age to complete this topic Meningococcal B Vacine Aged Out No lo nger eligible based on patient's age to complete this topic Pneumococcal Vaccine: Pediat rics (0 to 5 Years) and At-Risk Patients (6 to 64 Years) Aged Out No longer eligible b ased on patient's age to complete this topic RSV Immunization Patients Un tuyet 20 months Aged Out No longer eligible b ased on patient's age to complete this topic Varicella Vaccines Aged Out No longer eligible based on patient's age to complete this topic Care Teams Supervisor Order Takers Relationship Specialty Start Date End Date Vernon Peres MD PCP - General Internal Medicine 06/02/18
== END 2024-08-21 12:11 | disposition home or self-care (01) ==
PROVIDERS: PCP Internal Medicine
DX: G89.4 Chronic pain syndrome (principal); M53.3 Sacrococcygeal disorders, not elsewhere classified; Z68.31 Body mass index [BMI] 31.0-31.9, adult; E66.9 Obesity, unspecified; I10 Essential (primary) hypertension; M24.9 Joint derangement, unspecified

== ENCOUNTER → 2024-08-21 11:22 | Outpatient (BNVA) | payer MEDICARE, MEDICAID, SELFPAY | PROVIDERS: PCP Internal Medicine | DX: G89.4 Chronic pain syndrome (principal); M53.3 Sacrococcygeal disorders, not elsewhere classified; E66.9 Obesity, unspecified; Z68.31 Body mass index [BMI] 31.0-31.9, adult; I10 Essential (primary) hypertension; M24.9 Joint derangement, unspecified; Z71.3 Dietary counseling and surveillance | CPT/HCPCS: 96127; 99212 ==

== ENCOUNTER 2024-11-21 11:55 | Outpatient (AMB) | payer MEDICARE, MEDICAID, SELFPAY ==
[2024-11-21 12:18] VITALS: BP 100/62; PULSE 54; RESP 15; TEMP 36.6; O2SAT 99; BMI 30.2
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
--- OUTSIDE RECORDS SUMMARY | 2024-11-21 12:34 | XMS_ITS | Clinical Summary ---
Author Organization [facility] ity Address [address] [place] [address] Care Team Providers Care Secretarial Teacher Name Role Phone Vernon Peres MD Primary Care Provider [phone] Social History Tobacco Use Types Packs/Day Years [...] - 2023-2 5 season) 2024 Influenza Vaccine (Season Ended) 2025 RSV Immunization Adult Patie nts (1 - 1-dose 75+ series) 2039 HIB [...] age to complete this topic Meningococcal B Vaccine Aged Out No l onger eligible based on patient's age to complete [...] age to complete this topic Care Teams Secretarial Teacher Relationship Specialty Start Date End Date Vernon Peres MD PCP - General Internal Medicine 06/02/18
== END 2024-11-21 13:06 | disposition home or self-care (01) ==
PROVIDERS: PCP Internal Medicine; Visit Provider Physician Assistant Medical
DX: M54.50 Low back pain, unspecified (principal); G89.29 Other chronic pain; M53.3 Sacrococcygeal disorders, not elsewhere classified

== ENCOUNTER → 2024-11-21 11:55 | Outpatient (BNVA) | payer MEDICARE, MEDICAID, SELFPAY | PROVIDERS: PCP Internal Medicine; Visit Provider Physician Assistant Medical | DX: M53.3 Sacrococcygeal disorders, not elsewhere classified (principal); M54.50 Low back pain, unspecified; G89.29 Other chronic pain | CPT/HCPCS: 96372; 99212; J1885 ==

== ENCOUNTER 2025-02-27 14:16 | Outpatient (AMB) | payer MEDICARE, MEDICAID, SELFPAY ==
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
[2025-02-27 14:19] VITALS: BP 138/66; PULSE 57; TEMP 36.3; O2SAT 99; BMI 29.2
--- OUTSIDE RECORDS SUMMARY | 2025-02-27 17:33 | XMS_ITS | Clinical Summary ---
Author Organization [facility] ity Address [address] [place] [address] Care Team Providers Care Counseling Case Manager Name Role Phone Vernon Peres MD Primary Care Provider [phone] Social History Tobacco Use Types Packs/Day Years [...] 2014 Zoster Vaccines (1 of 2) 2014 Depression Screening 06/20/2024 COVID-19 Vaccine (1 - 2023-2 5 season) 2025 Influenza Vaccine (#1) 2025 RSV Immunization Adult Patie nts (1 [...] age to complete this topic Care Teams Counseling Case Manager Relationship Specialty Start Date End Date Vernon Peres MD PCP - General Internal Medicine 06/02/18
--- OUTSIDE RECORDS SUMMARY | 2025-02-27 17:33 | XMS_ITS | Encounter Summary ---
Author Organization [facility] Address [address] [place] [address] Phone Care Team Providers Care Electronic Die Maker Name Role Phone Rik Fields MD Primary Care Provider [phone] Encounter Details Date Type Department Care Team (Late st Contact Info) Description 12/29/2018 Procedure Pass [facility] Imaging [address] [place] [address] Social History Tobacco Use Types Packs/Day Years Used Date Smoking Tobacco: Never Assessed Sex and Gender Information Value Date Recorded Sex Assigned at Not on file Legal Sex Male 4:58 PM EST Gender Identity Not on file Sexual Orientation Not on file documented as of this encounter Plan of Treatment Not on file documented as of this encounter Visit Diagnoses Not on filedocumented in this encounter Care Teams Electronic Die Maker Relationship Specialty Start Date End Date Rik Fields MD [address] [place] [id number] PCP - General Internal Medicine 12/25/18 documented as of this encounter Additional Source Comments The information contained in this document represents components of the legal health record. It is not the complete legal health record.[facility]
--- OUTSIDE RECORDS SUMMARY | 2025-02-27 17:33 | XMS_ITS | Clinical Summary ---
Author Organization [facility] Address [facility] [employer] [address] [address] Phone Care Team Providers Care Marketing Program Manager Name Role Phone Rik Fields MD Primary Care Provider [phone] Social History Tobacco Use Types Packs/Day Years Used Date Smoking Tobacco: Never Assessed Education Answer Date Recorded Are you interested in more education? Not on jesenia e 10/17/2022 Are you concerned about learning? Not on file 10/17/2022 No 10/17/2022 No 10/17/2022 Digital Access Answer Date Recorded No 11/14/2022 No 11/14/2022 No 11/14/2022 Reliable internet access at home? Not on file 11/14/2022 Device with a working camera? Not on file Sex and Gender Information Value Date Recorded Sex Assigned at Not on file Legal Sex Male 4:58 PM EST Gender Identity Not on file Sexual Orientation Not on file Plan of Treatment Health Maintenance Due Date Last Done Comments LIPID PANEL 1964 DEPRESSION SCREENING 1976 SMOKING Hx and SMOKELESS TOBACCO SCREENING 1977 HEPATITIS C SCREENING 1982 HIV ONE-TIME SCREENING (18-6 5 YEARS) 1982 COLOGUARD 2009 COLONOSCOPY 2009 COLORECTAL CANCER SCREENING 2009 FIT TEST 2009 FOBT 2009 SIGMOIDOSCOPY 2009 VIRTUAL COLONOSCOPY 2009 PNEUMOCOCCAL VACCINES (50+ years) (1 of 1 - PCV) 2014 ZOSTER VACCINES (1 of 2) 2014 COVID-19 VACCINE (3 - 2023-2 5 season) 2024 10/15/2020, 09/17/2020 Adult Td,Tdap Booster 01/26/2028 01/25/2018 RSV VACCINE (1 - 1-dose 75+ series) 2039 HEPATITIS A VACCINES Aged Out No long er eligible based on patient's age to complete this topic HIB VACCINES Aged Out No longer eligi ble based on patient's age to complete this topic MENINGOCOCCAL VACCINES (ACWY) Aged Out No longer eligible based on patient's age to complete this topic MENINGOCOCCAL VACCINES (B) Aged Out N o longer eligible based on patient's age to complete this topic Medical Devices Not on file Insurance MEDICARE PART A & B [facility] MEDICARE PART A & B HEALTH MEDICARE PART A & B MEDICARE PART A & B [facility] MEDIC[facility] PART A & B [facility] MEDICARE PART A & B MEDICARE PART A & B MEDICARE PART A & B [facility] MEDICARE PART A & B [facility] Care Teams Marketing Program Manager Relationship Specialty Start Date End Date Rik Fields MD [address] [place] [address] PCP - General Internal Medicine 12/25/18 Additional Source Comments The information contained in this document represents components of the legal health record. It is not the complete legal health record.[facility]
--- OUTSIDE RECORDS SUMMARY | 2025-02-27 17:34 | XMS_ITS | Encounter Summary ---
Author Organization [facility] Address [address] [place] [address] Phone Care Team Providers Care Broker In Charge Name Role Phone Steven Gustafson MD Primary Care Provider [phone] Rik Fields MD Primary Care Provider [phone] Encounter Details Date Type Department Care Team (Latest Contact Info) Description 12/11/2018 Ancillary Orders [facility] Department of Orthopaedic Surgery, Shoulder Service [address] [place] [address], [address]rd Floor, [address] [place] [address] Merlin Barnett Jp, MD [address] [place], [place] [id number] [id number] [email or web address] Pain of both shoulder joints Social History Tobacco Use Types Packs/Day Years Used Date Smoking Tobacco: Never Assessed Sex and Gender Information Value Date Recorded Sex Assigned at Not on file Legal Sex Male 4:58 PM EST Gender Identity Not on file Sexual Orientation Not on file documented as of this encounter Plan of Treatment Not on file documented as of this encounter Results * XR SHOULDER 2 VIEWS (RIGHT) (12/11/2018 12:04 PM EDT) Anatomical Region Laterality Modality Shoulder Right Computed Radiogr aphy 12/11/2018 3:09 PM EDT Impressions 12/11/2018 3:15 PM EDT Mild right glenohumeral and moderate acromioclavicular joint degenerative changes. Postoperative changes of the left shoulder with progression of now moderate glenohumeral joint degenerative changes. Narrative 12/11/2018 3:15 PM EDT TECHNIQUE: XR SHOULDER 2 OR MORE VIEWS (RIGHT), XR SHOULDER 2 OR MORE VIEWS (LEFT) COMPARISON: Left shoulder radiographs from 05/30/2006 FINDINGS: Right shoulder: There are mild glenohumeral joint degenerative changes and moderate acromioclavicular joint degenerative changes. No acute fracture or dislocation. Left shoulder: There are moderate left glenohumeral joint degenerative changes, progressed since 2005. There are postoperative changes from distal left clavicle resection. Foci of ossification project over the superolateral humeral head, increased from prior. Procedure Note Sam Jimenez MD - 12/11/2018 TECHNIQUE: XR SHOULDER 2 OR MORE VIEWS (RIGHT), XR SHOULDER 2 OR MOREVIEWS (LEFT) COMPARISON: Left shoulder radiographs from 05/30/2006 FINDINGS: Right shoulder: There are mild glenohumeral joint degenerative changesand moderate acromioclavicular joint degenerative changes. No acute fractureor dislocation. Left shoulder: There are moderate left glenohumeral joint degenerativechanges, progressed since 2005. There are postoperative changes from distal leftclavicle resection. Foci of ossification project over the superolateral humeralhead, increased from prior. IMPRESSION: Mild right glenohumeral and moderate acromioclavicular jointdegenerative changes. Postoperative changes of the left shoulder with progression of nowmoderate glenohumeral joint degenerative changes. Merlin Barnett MD IMG XR UPPER EXTREMITY Final Re sult documented in this encounter Visit Diagnoses Diagnosis Pain of both shoulder joints Pain of both shoulder joints documented in this encounter Care Teams Broker In Charge Relationship Specialty Start Date End Date Steven Gustafson MD [address] [place] [address] PCP - General 12/18/13 12/24/18 Rik Fields MD [address] [place] [address] [address] [place] [phone] PCP - General Internal Medicine 12/25/18 documented as of this encounter Additional Source Comments The information contained in this document represents components of the legal health record. It is not the complete legal health record.[facility]
== END 2025-02-27 15:16 | disposition home or self-care (01) ==
LOC: HO.HMCH 14:16
PROVIDERS: PCP Internal Medicine; Visit Provider Internal Medicine
DX: I10 Essential (primary) hypertension (principal); E66.3 Overweight; E53.8 Deficiency of other specified B group vitamins; N28.9 Disorder of kidney and ureter, unspecified; D64.9 Anemia, unspecified; M96.1 Postlaminectomy syndrome, not elsewhere classified; F41.1 Generalized anxiety disorder; Z12.11 Encounter for screening for malignant neoplasm of colon

== ENCOUNTER → 2025-02-27 14:16 | Outpatient (BNVA) | payer MEDICARE, MEDICAID, SELFPAY | PROVIDERS: PCP Internal Medicine; Visit Provider Internal Medicine | DX: I10 Essential (primary) hypertension (principal); E66.3 Overweight; E53.8 Deficiency of other specified B group vitamins; N28.9 Disorder of kidney and ureter, unspecified; D64.9 Anemia, unspecified; M96.1 Postlaminectomy syndrome, not elsewhere classified; F41.1 Generalized anxiety disorder; Z79.891 Long term (current) use of opiate analgesic; G89.4 Chronic pain syndrome; Z68.29 Body mass index [BMI] 29.0-29.9, adult | CPT/HCPCS: 96127; 99212 ==

== ENCOUNTER 2025-05-07 08:56 | Outpatient (REF) | payer MEDICARE, MEDICAID, SELFPAY ==
[2025-05-07 10:33] LABS: MANUAL DIFF FLAG NO
[2025-05-07 11:07] LABS: Hematocrit 43.0 % (42.0-52.0); Hemoglobin 13.8 g/dl (14.0-18.0); Imm Gran Abs Auto 0.00 X10*3/uL (0.00-0.03); Imm Gran Pct Auto 0.0 % (0.0-0.4); Lymphocytes Absolute Auto 1.7 X10*3/uL (1.2-4.9); Mean Corpuscular HGB Conc 32.1 g/dl (31.0-36.0); Mean Corpuscular Hemoglobin 30.7 pg (27.0-33.0); Mean Corpuscular Volume 95.6 fL (80.0-98.0); NRBC Abs Auto 0.000 X10*3/uL (0.0-0.012); NRBC Pct Auto 0.0 /100WBC (0.0-0.2); Platelet Count 185 X10*3/uL (160-400); Red Blood Count 4.50 X10*6/uL (4.60-5.80); Reticulocytes Absolute 0.050 X10*6/uL (0.026-0.095); White Blood Count 4.4 X10*3/uL (4.8-10.8)
[2025-05-07 11:21] LABS: Cannabinoid Screen Urine POSITIVE (Not Detect)
[2025-05-07 11:23] LABS: Alanine Aminotransferase 23 U/L (0-40); Albumin Level 5.0 g/dL (3.5-5.0); Alkaline Phosphatase 101 U/L (39-117); Anion Gap 15 (12-20); Aspartate Amino Transferase 46 U/L (5-37); Blood Urea Nitrogen 16 mg/dL (9-16); Calcium 9.8 mg/dL (8.4-10.2); Carbon Dioxide 28 mmol/L (22-29); Chloride 100 mmol/L (96-108); Cholesterol 177 mg/dL (<200); Estimated Glomerular Filt Rate > 60; HDL Cholesterol 44 mg/dL (>40); Iron 101 mcg/dL (45-160); Percent Iron Saturation 34 % (15-50); Potassium 4.1 mmol/L (3.3-5.1); Sodium 139 mmol/L (135-145); Total Iron Binding Capacity 294 mcg/dL (228-428); Total Protein 8.2 g/dL (6.5-8.0); Triglycerides 135 mg/dL (<150); Unsaturated Iron Binding 193 ug/dL
[2025-05-07 11:35] LABS: Folate 12.0 ng/mL (> or = 4.0); Vitamin B12 284 pg/mL (200-900)
[2025-05-07 11:45] LABS: Ferritin 342 ng/mL (20-250); Free T4 (Free Thyroxine) 1.02 ng/dL (0.71-1.85); Thyroid Stimulating Hormone 0.67 uIU/mL (0.32-4.0)
[2025-05-10 08:56] LABS: Codeine, Ur NEGATIVE
[2025-05-10 08:57] LABS: Hydrocodone, Ur NEGATIVE; Hydromorphone, Ur NEGATIVE; Morphine, Ur NEGATIVE; Norhydrocodone, Ur NEGATIVE; Oxycodone, Ur 1700; Oxymorphone, Ur 1885
[2025-05-10 08:59] LABS: Noroxycodone, Ur 1958
== END 2025-05-07 08:57 | disposition home or self-care (01) ==
LOC: HO.HMGCLDS 08:56
PROVIDERS: PCP Internal Medicine; Visit Provider Internal Medicine
DX: Z51.81 Encounter for therapeutic drug level monitoring (principal); I10 Essential (primary) hypertension; M96.1 Postlaminectomy syndrome, not elsewhere classified; E78.00 Pure hypercholesterolemia, unspecified; Z12.5 Encounter for screening for malignant neoplasm of prostate
CPT/HCPCS: 80053; 80061; 80307; 80365; 82607; 82728; 82746; 83540; 84153; 84439; 84443; 85025; 85045; G0480

== ENCOUNTER 2025-06-14 09:09 | Outpatient (AMB) | payer MEDICARE, MEDICAID, SELFPAY ==
[2025-06-14 09:11] VITALS: BP 146/84; PULSE 68; TEMP 36.1; O2SAT 98; BMI 30.4
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
--- OUTSIDE RECORDS SUMMARY | 2025-06-14 09:12 | XMS_ITS | Encounter Summary ---
Author Organization [facility] Address [address] [employer] [address] [place] [address] Phone Care Team Providers Care Carpenter Streetcar Name Role Phone Steven Gustafson MD Primary Care Provider [phone] Rik Fields MD Primary Care Provider [phone] Encounter Details Date Type Department Care Team (Latest Contact Info) Description 12/11/2018 Ancillary Orders [facility] Orthopaedic Surgery Shoulder Service [address], 3rd Floor, [address] [place] [address] Merlin Barnett Jp, MD [address] [place], [place] [address] [place] [email or web address] Pain of both shoulder joints Social History [...] joints documented in this encounter Care Teams Carpenter Streetcar Relationship Specialty Start Date End Date Steven Gustafson MD [address] [place] [address] PCP - General 12/18/13 12/24/18 Rik Fields MD [address] [place] [address] PCP - General Internal Medicine 12/25/18 documented as of this encounter Additional Source Comments The information contained in this document represents components of the legal health record. It is not the complete legal health record.[facility]
--- OUTSIDE RECORDS SUMMARY | 2025-06-14 09:12 | XMS_ITS | Encounter Summary ---
Author Organization [facility] Address [address] [place] [address] Phone Care Team Providers Care Conduit Reamer Operator Name Role Phone Rik Fields MD Primary Care Provider [phone] Encounter Details Date Type Department Care Team (Late st Contact Info) Description 12/29/2018 Procedure Pass [facility] [address] [place] [address] Social History Tobacco Use Types Packs/Day Years [...] on filedocumented in this encounter Care Teams Conduit Reamer Operator Relationship Specialty Start Date End Date Rik Fields MD [address] [place] [id number] PCP - General Internal Medicine 12/25/18 documented as of this encounter Additional Source Comments The information contained in this document represents components of the legal health record. It is not the complete legal health record.[facility]
--- OUTSIDE RECORDS SUMMARY | 2025-06-14 09:12 | XMS_ITS | Clinical Summary ---
Author Organization [facility] Address [address] [place] [address] Care Team Providers Care Torch Burner Name Role Phone Vernon Peres MD Primary Care Provider [phone] Social History Tobacco Use Types Packs/Day Years [...] Depression Screening 06/20/2024 COVID-19 Vaccine (1 - 2024-2 6 season) 2025 Influenza Vaccine (#1) 2025 RSV [...] age to complete this topic Care Teams Torch Burner Relationship Specialty Start Date End Date Vernon Peres MD PCP - General Internal Medicine 06/02/18
--- OUTSIDE RECORDS SUMMARY | 2025-06-14 09:12 | XMS_ITS | Clinical Summary ---
Author Organization [facility] Address [address] [address] Phone Care Team Providers Care Botany Teacher Name Role Phone Rik Fields MD Primary Care Provider [phone] Social History Tobacco Use Types Packs/Day Years [...] HEPATITIS C SCREENING 1982 HIV ONE-TIME SCREENING (18-65 YEARS) 1982 COLOGUARD 2009 COLONOSCOPY 2009 COLORECTAL CANCER SCREENING 2009 FIT TEST 2009 FOBT 2009 SIGMOIDOSCOPY 2009 VIRTUAL COLONOSCOPY 2009 PNEUMOCOCCAL VACCINES (50+ years) (1 of 1 - PCV) 2014 ZOSTER VACCINES (1 of 2) 2014 INFLUENZA VACCINE (#1) 2025 , 04/12/2022, 04/01/2021, Additional history exists COVID-19 VACCINE ( - 2024- season) 2025 10/15/2020, 09/17/2020 Adult Td,Tdap Booster 01/26/2028 01/25/2018 [...] file Insurance MEDICARE PART A & B [facility] MEDICARE PART A & [facility] PART [facility] B MEDICARE PART A & B MEDICARE PART A & B HEALTH MEDICARE PART A & B MEDICARE PART A & B [facility] Member Subscriber Plan / P[facility] Name:Zoltan Alyarelis Watkins Jr. Relation to Subscriber:Self Name:Zoltan Alyarelis Watkins Jr. Payer ID:[id number] Group ID:Not on file Type:Medicaid Address: [address] [address] MEDICARE PART A & B [facility] Care Teams Botany Teacher Relationship Specialty Start Date End Date Rik Fields MD [address] [place] [id number] PCP - General Internal Medicine 12/25/18 Additional Source Comments The information contained in this document represents components of the legal health record. It is not the complete legal health record.[facility]
[2025-06-14 09:43] VITALS: BP 124/70
== END 2025-06-14 09:58 | disposition home or self-care (01) ==
LOC: HO.HMCH 09:10
PROVIDERS: PCP Internal Medicine; Visit Provider Internal Medicine
DX: I10 Essential (primary) hypertension (principal); E66.9 Obesity, unspecified; E53.8 Deficiency of other specified B group vitamins; R73.02 Impaired glucose tolerance (oral); R79.89 Other specified abnormal findings of blood chemistry; Z12.11 Encounter for screening for malignant neoplasm of colon; D64.9 Anemia, unspecified; M24.9 Joint derangement, unspecified

== ENCOUNTER → 2025-06-14 09:09 | Outpatient (BNVA) | payer MEDICARE, MEDICAID, SELFPAY | PROVIDERS: PCP Internal Medicine; Visit Provider Internal Medicine | DX: M96.1 Postlaminectomy syndrome, not elsewhere classified (principal); I10 Essential (primary) hypertension; E66.9 Obesity, unspecified; E53.8 Deficiency of other specified B group vitamins; R73.02 Impaired glucose tolerance (oral); R79.89 Other specified abnormal findings of blood chemistry; M24.812 Other specific joint derangements of left shoulder, not elsewhere classified; Z96.612 Presence of left artificial shoulder joint | CPT/HCPCS: 99212 ==